=== PATIENT | female | born 1945 | race Caucasian/White ===

== ENCOUNTER 2017-02-20 17:34 | Emergency (ER) | payer MEDICARE ==
[~2017-02-20] VITALS: Ht 167.6 cm; Wt 58.0 kg
[2017-02-20 17:36] VITALS: BP 222/122; PULSE 102; RESP 18; TEMP 99; O2SAT 95
[2017-02-20] MEDS ORDERED: SIMV40TA PO (17:55)
[2017-02-20] MEDS ORDERED: METO100T9 PO (17:55)
[2017-02-20] MEDS ORDERED: ASPI81CH CHEW (17:55)
[2017-02-20] MEDS ORDERED: GEMF600T PO (17:55)
[2017-02-20] MEDS ORDERED: LOSA100T PO (17:55)
[2017-02-20 18:47] LABS: AUTOMATED NEUTROPHIL # 7.2 TH/MM3 (1.8-7.7); BASOPHIL % 0.5 % (0.0-2.0); EOSINOPHIL # 0.1 TH/MM3 (0-0.4); EOSINOPHIL % 1.3 % (0.0-4.0); HEMATOCRIT 43.6 % (35.0-46.0); LYMPH % 16.7 % (9.0-44.0); LYMPHOCYTE # 1.7 TH/MM3 (1.0-4.8); MEAN CELL VOLUME 101.9 FL (80.0-100.0); MEAN CORPUSCULAR HEMOGLOBIN 35.1 PG (27.0-34.0); MEAN CORPUSCULAR HGB CONC 34.4 % (32.0-36.0); MEAN PLATELET VOLUME 8.7 FL (7.0-11.0); MONO % 9.1 % (0.0-8.0); MONOCYTE # 0.9 TH/MM3 (0-0.9); NEUT % 72.4 % (16.0-70.0); PLATELET COUNT 209 TH/MM3 (150-450); RED BLOOD COUNT 4.28 MIL/MM3 (4.00-5.30); RED CELL DISTRIBUTION WIDTH 13.8 % (11.6-17.2); WHITE BLOOD COUNT 9.9 TH/MM3 (4.0-11.0)
--- NOTE | 2017-02-20 18:55 | PD ---
HPI Chief Complaint: Property Supervisor Problem/Complaint Time Seen by Provider: 18:03 Travel History International Travel<30 days: No Contact w/Intl Traveler<30days: No Traveled to known affect area: No History of Present Illness HPI 71-year-old female that presents to the ED for evaluation of vaginal bleeding. Per patient she's had this on and off for the past 3-4 days. Per patient is progressively getting more significant. The patient is started with spotting but now has progressed to more heavy bleeding. No clots. Per patient she has applied a padded to prevent the bleeding. She denies any injuries or trauma. No fevers chills or sweats. No pain. Check she had a pelvic exam about a year ago and was negative for any acute disease. She's never had anything like this before. She has not had a menses in about 20 years. She has never had surgeries for her ovaries or her uterus. She denies any other medical issues. She does not take any blood thinners. She denies any bowel movement or urinary issues. No weakness. No loss of weight. Has not POSTAL SERVICE WINDOW CLERK at this time. Patient was concerned mainly because today the bleeding continued she has no explanation for why. She has allergies to penicillin. She has no pain. PFSH Past Medical History Arthritis: Yes Heart Rhythm Problems: Yes (LBBB) High Cholesterol: Yes Hypertension: Yes Influenza Vaccination: No Menopausal: Yes Para: 0 Past Surgical History Appendectomy: Yes Social History Alcohol Use: Yes Tobacco Use: Yes Substance Use: No Allergies-Medications (Allergen,Severity, Reaction): Coded Allergies: Penicillins (Verified Allergy, Severe, Rash, 02/20/17) Reported Meds & Prescriptions Reported Meds & Active Scripts Active Reported Aspirin 81 Mg Chew 81 Mg CHEW DAILY Losartan (Losartan Potassium) 100 Mg Tab 100 Mg PO DAILY Metoprolol Succinate ER 24 HR (Metoprolol Succinate) 100 Mg Tab 100 Mg PO DAILY Gemfibrozil 600 Mg Tab 600 Mg PO BIDAC Take 30 minutes prior to breakfast and dinner. Simvastatin 40 Mg Tab 40 Mg PO HS Review of Systems Except as stated in HPI: all other systems reviewed are Neg Physical Exam Narrative GENERAL: SKIN: Warm and dry. HEAD: Atraumatic. Normocephalic. EYES: Pupils equal and round. No scleral icterus. No injection or drainage. ENT: No nasal bleeding or discharge. Mucous membranes pink and moist. Tongue is midline. No uvula deviation. NECK: Trachea midline. No JVD. CARDIOVASCULAR: Regular rate and rhythm. No murmurs, S3, S4. RESPIRATORY: No accessory muscle use. Clear to auscultation. Breath sounds equal bilaterally. GASTROINTESTINAL: Abdomen soft, non-tender, nondistended. Hepatic and splenic margins not palpable. Pelvic exam: The with female nurse present. Patient has no obvious masses or deformities to the vaginal wall or cervix. Cervix appears to be close. No obvious masses but there is some bleeding coming from the inside of the vagina. No quadriplegia noted. No obvious discharge otherwise. No adnexal tenderness that I can palpate. MUSCULOSKELETAL: Extremities without clubbing, cyanosis, or edema. No obvious deformities. Full range of motion of the upper and lower extremities bilaterally. 2+ pulses bilaterally. NEUROLOGICAL: Awake and alert. No obvious cranial nerve deficits. Motor grossly within normal limits. Five out of 5 muscle strength in the arms and legs. Normal speech. PSYCHIATRIC: Appropriate mood and affect; insight and judgment normal. Data Data Last Documented VS Vital Signs Date Time Temp Pulse Resp B/P (MAP) Pulse Ox O2 Delivery O2 Flow Rate FiO2 02/20/17 19:30 88 18 180/78 (112) 99 Room Air 02/20/17 17:36 99.0 Orders Orders Complete Blood Count With Diff (02/20/17 18:18) Basic Metabolic Panel (Bmp) (02/20/17 18:18) Urinalysis - C+S If Indicated (02/20/17 18:18) Coag Profile (02/20/17 18:18) Wet Prep Profile (02/20/17 18:18) Us Pelvis Comp W Transvaginal (02/20/17 ) Labs Laboratory Tests Test 02/20/17 18:28 02/20/17 20:26 White Blood Count 9.9 TH/MM3 Red Blood Count 4.28 MIL/MM3 Hemoglobin 15.0 GM/DL Hematocrit 43.6 % Mean Corpuscular Volume 101.9 FL Mean Corpuscular Hemoglobin 35.1 PG Mean Corpuscular Hemoglobin Concent 34.4 % Red Cell Distribution Width 13.8 % Platelet Count 209 TH/MM3 Mean Platelet Volume 8.7 FL Neutrophils (%) (Auto) 72.4 % Lymphocytes (%) (Auto) 16.7 % Monocytes (%) (Auto) 9.1 % Eosinophils (%) (Auto) 1.3 % Basophils (%) (Auto) 0.5 % Neutrophils # (Auto) 7.2 TH/MM3 Lymphocytes # (Auto) 1.7 TH/MM3 Monocytes # (Auto) 0.9 TH/MM3 Eosinophils # (Auto) 0.1 TH/MM3 Basophils # (Auto) 0.0 TH/MM3 CBC Comment DIFF FINAL Differential Comment Prothrombin Time 10.8 SEC Prothromb Time International Ratio 1.0 RATIO Activated Partial Thromboplast Time 25.5 SEC Clue Cells (Wet Prep) NONE SEEN Vaginal Trichomonas (Wet Prep) NONE SEEN Vaginal Yeast (Wet Prep) NONE SEEN Blood Urea Nitrogen 15 MG/DL Creatinine 0.73 MG/DL Random Glucose 112 MG/DL Calcium Level 9.5 MG/DL Sodium Level 139 MEQ/L Potassium Level 3.6 MEQ/L Chloride Level 108 MEQ/L Carbon Dioxide Level 24.4 MEQ/L Anion Gap 7 MEQ/L Estimat Glomerular Filtration Rate 79 ML/MIN MDM Medical Decision Making Medical Screen Exam Complete: Yes Emergency Medical Condition: Yes Medical Record Reviewed: Yes Interpretation(s) CBC Diagram 02/20/17 18:28 BMP Diagram 02/20/17 18:28 Calcium Level 9.5 wet prep negative Last Impressions Pelvis Ultrasound 02/20/17 0000 Signed Impressions: Service Date/Time: Wednesday, February 20, 2017 19:49 - CONCLUSION: 1. Exam Limited by bowel gas. Ovaries and endometrial stripe not seen. Questionable uterine calcifications. Trace free fluid. Robson Swenson MD Differential Diagnosis Vaginal bleeding versus postmenopausal vaginal bleeding versus cancer versus tumor versus UTI versus fibroid Narrative Course 71-year-old female that presents to the ED for evaluation of vaginal bleeding. Patient was properly examined and was found to have signs and symptoms consistent with vaginal bleeding. Unclear etiology at this time. Case discussed in my attending who recommends labs and imaging. This was ordered. This showed no sign of acute disease other than possible fibroid. Unfortunately cannot give a good diagnosis for the patient. Do recommend close follow-up with POSTAL SERVICE WINDOW CLERK. I strongly encouraged her to follow with POSTAL SERVICE WINDOW CLERK week. She understands this. No medications given at this time. Close follow with PCP. See ED for any worsening symptoms. She understands reasons to come back. This was discussed with my attending who agrees with plan. Diagnosis Primary Impression: Postmenopausal bleeding Referrals: Josh Nicole MD Patient Instructions: General Instructions Med/Other Pt SpecificInfo: No Change to Meds Disposition: 01 DISCHARGE HOME Condition: Justice Johnson Feb 20, 2017 18:55
[2017-02-20 19:00] LABS: BICARBONATE 24.4 MEQ/L (21.0-32.0); CALCIUM 9.5 MG/DL (8.5-10.1); CREATININE 0.73 MG/DL (0.50-1.00); PROTHROMBIN TIME - PATIENT 10.8 SEC (9.8-11.6)
[2017-02-20 19:30] VITALS: BP 180/78; PULSE 88; RESP 18; O2SAT 99
--- NOTE | 2017-02-20 20:27 | RADRPT ---
EXAM DATE/TIME: 02/20/2017 19:49 [facility] COMPARISON: No previous studies available for comparison. INDICATIONS : Bleeding post-menopause. MEDICAL HISTORY : Hypercholesterolemia. Hypertension. Arthritis. SURGICAL HISTORY : Appendectomy. ENCOUNTER: Initial ACUITY: 1 week PAIN SCORE: 0/10 LOCATION: Bilateral pelvis MEASUREMENTS: TRANSABDOMINAL: FINDINGS: Exam Limited due to bowel gas. Ovaries not visualized. Probable endometrial calcification that could be related to a fibroid. Endometrial stripe not visualized. CONCLUSION: 1. Exam Limited by bowel gas. Ovaries and endometrial stripe not seen. Questionable uterine calcifica tions. Trace free fluid. Robson Swenson MD on February 20, 2017 at 20:24 Board Certified Radiologist. This report was verified electronically.
[2017-02-20 21:12] LABS: BILIRUBIN, URINE NEG (NEG); BLOOD, URINE LARGE (NEG); GLUCOSE,URINE NEG (NEG); KETONE, URINE NEG (NEG); MUCUS URINE FEW /lpf (OCC); NITRITE,URINE NEG (NEG); PH, URINE 6.5 (5.0-8.5); SQUAMOUS EPITHELIAL CELL URINE <1 /hpf (0-5); URINE COLOR LIGHT-YELLOW (YELLW/STRAW); URINE LEUKOCYTE ESTERASE SMALL (NEG)
== END 2017-02-20 21:16 | disposition home or self-care (01) ==
LOC: NEPC 17:34
DX: N95.0 Postmenopausal bleeding (principal); I10 Essential (primary) hypertension; Z72.0 Tobacco use
CPT/HCPCS: 76830; 76856; 80048; 81001; 85025; 85610; 85730; 87210

== ENCOUNTER → 2017-03-18 | Day surgery (SDC) | payer MEDICARE ==
--- NOTE | 2017-03-17 14:03 | TH ---
cc: REBECCA BRUNSON MD DATE: 03/17/2017 REASON FOR ADMISSION This is a 71-year-old white female, 0. She is being admitted to [facility] for evaluation of postmenopausal bleeding. HISTORY OF PRESENT ILLNESS The patient is well-known to our practice. She came in after she had two episodes of postmenopausal bleeding, one heavy enough to bring her to the emergency room. After seeing her in the office and evaluating her, we did an endometrial sampling which was read out as benign. The patient has continued to bleed, however, and ultrasound scan examination showed a grossly enlarged endometrial layer of 20 mm which does bring the possibility of malignancy despite having a negative endometrial sampling. We discussed this possibility with the patient and scheduled her for a full dilatation and curettage and hysteroscopy. SOCIAL HISTORY She does admit to smoking and smokes every day. She drinks socially, 0-2 drinks per day. PAST MEDICAL HISTORY 1. Hypertension. 2. Hyperlipidemia. MEDICATIONS She is presently on: 1. Aspirin 81 mg. 2. Losartan 100 mg daily. 3. Metoprolol. 4. Gemfibrozil. 5. Simvastatin. FAMILY HISTORY Her mother and father both had diabetes and mother and father both had hypertension. REVIEW OF SYSTEMS Essentially noncontributory. PHYSICAL EXAMINATION GENERAL: The patient is seen well-developed, well-nourished, in no acute distress. VITAL SIGNS: Blood pressure 160/100, pulse 70, respirations 12. HEENT: Negative. CHEST: Clear to auscultation. CARDIOVASCULAR: Regular rate. ABDOMEN: Soft. Bowel sounds positive. PELVIC: The uterus is slightly enlarged. There are no adnexal masses palpable. External genitalia is within normal limits. EXTREMITIES: No cyanosis, clubbing or edema. NEUROPSYCHIATRIC: The patient is oriented x3. No gross neurocranial deficit. IMPRESSION The impression on admission is postmenopausal bleeding. PLAN The plan is for D&C and hysteroscopy. MD ARMANDO LittleG/ROSANNA /1:37 PM /1:50 PM
[~2017-03-18] MED LIST: ASPI-516 CHEW; GEMF600T PO; LACTATED RINGER'S 1000 ML INJ 1,000 ML ONE; LOSA100T PO; MEPERIDINE HCL 25 MG/ML VIAL ONE; METO1TAB43 PO; MIDAZOLAM HCL 2 MG/2 ML VIAL ONE; ONDANSETRON HCL 4 MG/2 ML VIAL IV PUSH ONE; PROPOFOL 200 MG/20 ML AMP IV ONE; SIMV40TA PO; SODIUM CHLOR 0.9% 250 ML BAG IV ONE; VANCOMYCIN HCL 1000 MG VIAL ONE
--- NOTE | 2017-03-18 10:47 | MP ---
cc: ROBBI OTOOLE MD DATE OF SURGERY 03/18/2017 PREOPERATIVE DIAGNOSIS Postmenopausal bleeding. POSTOPERATIVE DIAGNOSIS Postmenopausal bleeding. OPERATION D&C, hysteroscopy. SURGEON MD Xiang ANESTHESIA General. ESTIMATED BLOOD LOSS Minimal. FINDINGS Findings consistent with possible polypoid tissue removed from the endometrial cavity. NON DESTRUCTIVE TESTING SCIENTIST None. COMPLICATIONS None. PROCEDURE The patient was prepped and draped in dorsal lithotomy position. Weighted speculum was placed in the posterior vaginal vault. The anterior lip of the cervix was grasped with a single-tooth tenaculum. The uterine cavity was sounded to approximately 7.5 cm. It was dilated up using Ignacio dilators, then the sharp curetting instrument was entered in the endometrial cavity. Curettings were taken. These were then sent to pathology. The hysteroscope was then used to identified any abnormalities in the uterine cavity. There was none. The hysteroscope was then removed, the tenaculum and speculum removed and the patient returned to the recovery room in stable condition. Robbi Otoole MD JSG/SSB /9:01 AM /10:31 AM
== END | disposition home or self-care (01) ==
LOC: ESDC 06:41
PROVIDERS: ATTEND Obstetrics & Gynecology
DX: N95.0 Postmenopausal bleeding (principal)
CPT/HCPCS: 00952; 58558; 88305; J2175; J2250; J2405; J3010; J3370; J7050; J7120

== ENCOUNTER → 2017-04-15 | Outpatient (CLI) | payer MEDICARE ==
[~2017-04-15] MED LIST changes: -LACTATED RINGER'S 1000 ML INJ 1,000 ML ONE; -MEPERIDINE HCL 25 MG/ML VIAL ONE; -MIDAZOLAM HCL 2 MG/2 ML VIAL ONE; -ONDANSETRON HCL 4 MG/2 ML VIAL IV PUSH ONE; -PROPOFOL 200 MG/20 ML AMP IV ONE; -SODIUM CHLOR 0.9% 250 ML BAG IV ONE; +TRAM50 PO; -VANCOMYCIN HCL 1000 MG VIAL ONE
[2017-04-15 14:16] LABS: AUTOMATED NEUTROPHIL # 6.8 TH/MM3 (1.8-7.7); BASOPHIL % 0.5 % (0.0-2.0); EOSINOPHIL # 0.1 TH/MM3 (0-0.4); EOSINOPHIL % 0.9 % (0.0-4.0); HEMATOCRIT 43.6 % (35.0-46.0); HEMO FLAGS DIFF FINAL; LYMPH % 15.1 % (9.0-44.0); LYMPHOCYTE # 1.4 TH/MM3 (1.0-4.8); MEAN CELL VOLUME 102.6 FL (80.0-100.0); MEAN CORPUSCULAR HEMOGLOBIN 35.2 PG (27.0-34.0); MEAN CORPUSCULAR HGB CONC 34.3 % (32.0-36.0); MONO % 8.1 % (0.0-8.0); NEUT % 75.4 % (16.0-70.0); PLATELET COUNT 225 TH/MM3 (150-450); RED BLOOD COUNT 4.25 MIL/MM3 (4.00-5.30); RED CELL DISTRIBUTION WIDTH 13.4 % (11.6-17.2)
[2017-04-15 14:27] LABS: APTT (PATIENT) 24.7 SEC (24.3-30.1); PROTHROMBIN TIME - PATIENT 10.4 SEC (9.8-11.6)
[2017-04-15 16:04] LABS: ALT (GPT) 22 U/L (10-53); ANION GAP 6 MEQ/L (5-15); AST (GOT) 16 U/L (15-37); BICARBONATE 28.7 MEQ/L (21.0-32.0); BLOOD UREA NITROGEN 13 MG/DL (7-18); CHLORIDE 108 MEQ/L (98-107); GLOMERULAR FILTRATION RATE 80 ML/MIN (>89); GLUCOSE,FASTING 99 MG/DL (74-99); SODIUM (NA) 143 MEQ/L (136-145)
[2017-04-15 16:15] LABS: ALKALINE PHOSPHATASE 76 U/L (45-117); TOTAL BILIRUBIN ADULT 0.4 MG/DL (0.2-1.0)
== END ==
LOC: CPRE 13:46
PROVIDERS: ATTEND Obstetrics & Gynecology Gynecologic Oncology
DX: C54.1 Malignant neoplasm of endometrium (principal)
CPT/HCPCS: 36415; 80053; 85025; 85610; 85730; 86304

== ENCOUNTER 2017-04-22 08:15 | Observation (INO) | payer MEDICARE ==
[~2017-04-22] VITALS: Ht 167.6 cm; Wt 62.3 kg
[~2017-04-22 08:15] MED LIST changes: -TRAM50 PO
[2017-04-22] MEDS ORDERED: CHLORHEXIDINE GLUCONATE 2 % 1 PACK (2 CLOTHS) TOPICAL PRN (08:45)
[2017-04-22] MEDS ORDERED: METOPROLOL TARTRATE 25 MG TAB PO PRN (08:45)
[2017-04-22] MEDS ORDERED: LACTATED RINGER'S 1000 ML IV PRN (08:45)
[2017-04-22] MEDS ORDERED: POVIDONE IODINE 5% (ANTISEPSIS KIT) 4 APPLICATIONS EACH NARE PRN (08:45)
[2017-04-22] MEDS ORDERED: SODIUM CHLORID 0.9% 500 ML IV PRN (08:45)
[2017-04-22] MEDS ORDERED: METRONIDAZOLE 500 MG/100 ML ISONTONIC SOLN IV SCH (09:00)
[2017-04-22] MEDS ORDERED: LEVOFLOXACIN 500 MG PREMIX INJ 100 ML IV SCH (09:00)
[2017-04-22] MEDS ORDERED: HEPARIN SODIUM - SQ 10,000 UNITS/ML VIAL SQ SCH (09:00)
[2017-04-22] MEDS ORDERED: NEOSTIGMINE 5 MG/5 ML SYRINGE IV PUSH ONE (12:00)
[2017-04-22] MEDS ORDERED: ONDANSETRON HCL 4 MG/2 ML VIAL IV ONE (12:00)
[2017-04-22] MEDS ORDERED: LABETALOL HCL 100 MG/20 ML VIAL IV ONE (12:00)
[2017-04-22] MEDS ORDERED: ROCURONIUM INJ 50 MG/5 ML SYRINGE IV PUSH ONE (12:00)
[2017-04-22] MEDS ORDERED: DEXAMETHASONE SOD PHOS 4 MG/ML VIAL IV ONE (12:00)
[2017-04-22] MEDS ORDERED: PROPOFOL 200 MG/20 ML AMP IV ONE (12:00)
[2017-04-22] MEDS ORDERED: ePHEDrine/NS 25 MG/5 ML SYRINGE IV ONE (12:00)
[2017-04-22] MEDS ORDERED: LIDOCAINE HCL 1% PF 5 ML SYRINGE OTHER ONE (12:00)
[2017-04-22] MEDS ORDERED: STERILE WATER FOR INJECTION 20 ML VIAL IV ONE (12:00)
[2017-04-22] MEDS ORDERED: VECURONIUM BROMIDE 20 MG VIAL IV ONE (12:00)
[2017-04-22] MEDS ORDERED: GLYCOPYRROLATE 1 MG/5 ML SYRINGE IV PUSH ONE (12:00)
[2017-04-22] MEDS ORDERED: METHYLENE BLUE 10 MG/ML VIAL OTHER ONE (14:00)
[2017-04-22] MEDS ORDERED: DO NOT ADM ANY ANTICOAGULANT DRUGS PRN (16:46)
[2017-04-22] MEDS ORDERED: *morphine SULFATE 8 MG/ML PERIprocedure ONLY ONE ×2 (16:53→17:12)
[2017-04-22] MEDS: KETOROLAC TROMETHAMINE 30 MG/ML (IVP) VIAL IVP SCH ×2 (17:00→22:32)
[2017-04-22] MEDS: D5-1/2 NS + KCL 20 MEQ INJ 1,000 ML IV SCH (17:15)
[2017-04-22] MEDS ORDERED: ONDANSETRON HCL 4 MG/2 ML VIAL IVP PRN (18:00)
[2017-04-22] MEDS ORDERED: traMADol HCL 50 MG TAB PO PRN (18:00)
[2017-04-22] MEDS ORDERED: diphenhydrAMINE HCL 25 MG CAP PO PRN (18:00)
[2017-04-22] MEDS ORDERED: LORazepam 0.5 MG TAB PO PRN (18:00)
[2017-04-22] MEDS ORDERED: SODIUM CHLORIDE 0.9% FLUSH 10 ML FLUSH IV FLUSH PRN (18:00)
[2017-04-22] MEDS ORDERED: DIMETHICONE/OXYBENZONE/PADMIATE LIP BALM 4.25 GM TOPICAL ONE (18:14)
[2017-04-22] MEDS ORDERED: HYDROmorphone HCL PF 2 MG/ML VIAL IV PRN (18:15)
[2017-04-22 20:30] VITALS: BP 122/69; PULSE 81; RESP 18; TEMP 98.1; O2SAT 95
[2017-04-22] MEDS ORDERED: PRAVASTATIN SOD 80 MG TAB PO SCH (21:00)
[2017-04-22] MEDS: SODIUM CHLORIDE 0.9% FLUSH 10 ML FLUSH IV FLUSH SCH (22:31)
[2017-04-23 01:02] VITALS: BP 110/72; PULSE 81; RESP 18; TEMP 98.2; O2SAT 92
[2017-04-23 04:48] VITALS: BP 120/79; PULSE 85; RESP 18; TEMP 98.3; O2SAT 94
[2017-04-23] MEDS: KETOROLAC TROMETHAMINE 30 MG/ML (IVP) VIAL IVP SCH (04:49)
[2017-04-23] MEDS: D5-1/2 NS + KCL 20 MEQ INJ 1,000 ML IV SCH (04:50)
[2017-04-23] MEDS ORDERED: TRAM50 PO (06:59)
[2017-04-23] MEDS ORDERED: GEMFIBROZIL 600 MG TAB PO SCH (07:00)
[2017-04-23 08:17] LABS: AUTOMATED NEUTROPHIL # 10.9 TH/MM3 (1.8-7.7); BASOPHIL % 0.1 % (0.0-2.0); HEMATOCRIT 36.7 % (35.0-46.0); HEMOGLOBIN 12.2 GM/DL (11.6-15.3); LYMPH % 4.6 % (9.0-44.0); LYMPHOCYTE # 0.6 TH/MM3 (1.0-4.8); MEAN CELL VOLUME 102.2 FL (80.0-100.0); MEAN CORPUSCULAR HEMOGLOBIN 33.9 PG (27.0-34.0); MEAN CORPUSCULAR HGB CONC 33.2 % (32.0-36.0); MEAN PLATELET VOLUME 8.2 FL (7.0-11.0); MONO % 7.9 % (0.0-8.0); NEUT % 87.4 % (16.0-70.0); PLATELET COUNT 207 TH/MM3 (150-450); RED BLOOD COUNT 3.59 MIL/MM3 (4.00-5.30); RED CELL DISTRIBUTION WIDTH 13.7 % (11.6-17.2); WHITE BLOOD COUNT 12.5 TH/MM3 (4.0-11.0)
[2017-04-23 08:47] LABS: BICARBONATE 25.7 MEQ/L (21.0-32.0); CALCIUM 7.9 MG/DL (8.5-10.1); CREATININE 0.96 MG/DL (0.50-1.00)
[2017-04-23 08:51] VITALS: BP 138/72; PULSE 82; RESP 18; TEMP 98.5; TEMP 99.4; O2SAT 98
[2017-04-23] MEDS: SODIUM CHLORIDE 0.9% FLUSH 10 ML FLUSH IV FLUSH SCH (08:54)
[2017-04-23] MEDS ORDERED: LOSARTAN 50 MG TAB PO SCH (09:00)
[2017-04-23] MEDS ORDERED: NITROFURANTOIN MONOHYD MACROCR 100 MG CAP PO SCH (09:00)
[2017-04-23] MEDS ORDERED: METOPROLOL SUCCINATE 50 MG EXTENDED RELEASE TAB PO SCH (09:00)
--- NOTE | 2017-04-26 15:57 | MD ---
cc: REBECCA BRUNSON MD,STEPHANIE Bobby MD ADMISSION DATE: 04/22/2017 DISCHARGE DATE: 04/23/2017 PROCEDURE 04/22/2017 - Robotic-assisted laparoscopic hysterectomy, bilateral salpingo-oophorectomy, extensive lysis of adhesions, bilateral pelvic lymph node biopsies. DIAGNOSIS High-grade endometrial cancer. FINDINGS Sigmoid mass with intraoperative consult to Dr. Gael Rodrigues. HOSPITAL COURSE She remained hemodynamically stable, tolerating oral intake. Michael catheter has remained in place due to some oversewing of the bladder at surgery. In's and out's 1300/600. LABS Pending. PHYSICAL EXAMINATION VITAL SIGNS: Afebrile, pulse 74-85, respirations 16-18, blood pressure 110-122/60-79, O2 saturations greater than or equal to 92% while asleep, up to 97% while awake. LUNGS: Clear except for mild basilar rales. CARDIOVASCULAR: Regular rate and rhythm. ABDOMEN: Soft. Incisions clean and dry. COMMERCIAL PEST CONTROL TECHNICIAN: No bleeding. ASSESSMENT Postop day #1. Findings, preliminary pathology, steps taken, discussed. Activities and restrictions reviewed. Questions were asked and answered. She expressed good understanding. PLAN Anticipate discharge to home. She is to continue indwelling Michael catheter for one week. She is contact our office to schedule follow up in one week and the office number is made available. She was also made aware of the findings of a sigmoid mass that needs further evaluation and appointment will be set for her to see Dr. Gael Rodrigues in colorectal surgery who was consulted intraoperatively and is aware of preliminary findings and recommended follow-up colonoscopy and potentially additional intervention after she is healed up from her current surgery. She is to resume prior medications. She is to take once daily Macrobid while she has a Michael catheter in place. She has tramadol for pain and she should call our office should she have any questions or problems between now and the time of scheduled followup. Stephanie Morales MD KM/KITTY /6:52 AM /3:36 PM
--- NOTE | 2017-05-12 10:48 | MP ---
cc: MATTEO ARTHUR M.D., KELLY L. MD DATE OF SURGERY 04/22/2017 PREOPERATIVE DIAGNOSIS Endometrial cancer. POSTOPERATIVE DIAGNOSIS Endometrial cancer. POSTOPERATIVE DIAGNOSIS Endometrial cancer. PROCEDURE Robotic-assisted laparoscopic hysterectomy, bilateral salpingo-oophorectomy, bilateral retroperitoneal pelvic lymph node exploration, and excisional lymph node biopsies. SURGEON Iliana Morales. INTRAOPERATIVE CONSULT Gael Rodrigues-Colorectal Surgery DOUGH SHEETER [employer] Network Engineer. ANESTHESIA General endotracheal. ESTIMATED BLOOD LOSS 100 cc. HISTORY This is a 71-year-old female with postmenopausal bleeding which led to further evaluation with prominent endometrial stripe. Biopsy showed high-grade endometrial cancer. She was counseled regarding these findings and consideration for surgery. She is seen again in the pre-op holding area where the findings are again reviewed, questions were answered and the plan of care is discussed. She expressed good understanding and agrees to move forward. FINDINGS Uterine cavity sounds between 6 and 7 cm. The uterus grossly appears normal. The ovaries grossly appear normal. In the peritoneal cavity the liver and diaphragm edges are smooth. The omentum grossly appears normal. Large and small bowel and adjacent mesentery are without any evidence of tumor implants. In the retroperitoneum there are no prominent lymph nodes in the paraaortic or pericaval region. On exploration of the retroperitoneum there are a couple of borderline enlarged lymph nodes in the right pelvic region, one in the external iliac region, one in the obturator space ventral to the obturator nerve. On the left side there is a single lymph node, prominent along the external iliac vein. Each lymph node was perhaps no larger than 1 cm. The remainder of the lymphatic basin appeared normal. The uterus once removed showed a tumor to be approximately 2 cm in diameter with what seemed to be fairly superficial myometrial invasion, certainly seemingly far less than 50%. No extension into the cervix. A 5-6 cm mass was noted seemingly arising from the medial (right) wall of the lower sigmoid colon. The mass is of uncertain etiology. Dr. Rodrigues graciously came to the OR upon request and reviewed these findings on the surgical monitor. He recommended no intervention be undertaken at this time, but recommended outpatient follow-up evaluation, including colonoscopy. DETAILS OF PROCEDURE She was taken to the operating room, placed in dorsal lithotomy position. After general endotracheal anesthesia was administered a timeout was undertaken. She was identified by sight recognition and hospital ID [id number], and the proposed procedure was reviewed and confirmed. She was carefully positioned in padded Sarthak stirrups. Her arms were padded and secured to the sides. She was further secured to the operating table with eggcrate padding and tape in across chest over the shoulder fashion. All sites were noted to be properly aligned with no malalignments or pressure points. She was prepped and draped in sterile fashion, placed in lithotomy position. The cervix was grasped. The uterine cavity was sounded. A standard VCare manipulator was inserted and secured in the usual fashion. A Michael catheter was placed in the bladder. She has returned to low lithotomy position. A change of sterile gloves was undertaken. We completed draping in anticipation of laparoscopy. After confirming that an orogastric tube was in the stomach on suction with manual elevation of the abdominal wall and direct laparoscopic visualization, a 5 mm cannula was introduced into the left upper quadrant in an atraumatic fashion. Carbon dioxide gas was insufflated. Under laparoscopic visualization a 12 mm cannula was placed in the midline above the umbilicus, an 8 mm cannula placed in the right upper quadrant and left lateral quadrant, and the original 5 mm exchanged for an 8 mm cannula. She was placed in steep Trendelenburg position. Peritoneal washings were obtained for cytology. The anatomy was reviewed with findings as described above. The small bowel was folded back on its mesenteric root and three Ray-Shellie sponges were placed around the root of the small bowel mesentery. The robotic system was brought into the operative field and attached in the usual fashion. Monopolar scissors, fenestrated bipolar forceps and ProGrasp manipulators were placed in arms #1, 2 and 3 respectively, and I took my place at the surgeon's console. The right round ligament was isolated, cauterized and transected. The anterior and posterior leafs of the broad ligament were opened. The right ureter was identified. The right infundibulopelvic ligament was opened. The intervening peritoneum was dissected. The infundibulopelvic ligament was isolated to the level of the pelvic brim where it was cauterized and transected. The posterior peritoneum was opened along the right side of the uterus and cervix and the right vesicouterine peritoneum was dissected off the lower uterine segment and cervix. The right uterine vessels were skeletonized. The right uterine vessels were cauterized and transected as were the cardinal, paracervical and uterosacral ligaments, thereby freeing attachments along the right side of the uterus and cervix. Attention was directed toward the left side. Subtle physiologic adhesions were taken down to mobilize the colon. The left round ligament was isolated, cauterized and transected. The anterior and posterior leafs of the broad ligament were opened. The left ureter was identified. The left infundibulopelvic ligament was isolated. The intervening peritoneum was opened. The infundibulopelvic ligament was isolated to the level of the pelvic brim where it was cauterized and transected. The posterior peritoneum was opened along the left side of the uterus and cervix. The left vesicouterine peritoneum was dissected off the lower uterine segment and cervix and the left uterine vessels were skeletonized. The left uterine vessels were cauterized and transected as were the cardinal, paracervical and uterosacral ligaments, thereby removing the attachments along the left side of the uterus and cervix. Circumferential colpotomy was performed the cervix from the upper vagina. The specimen was withdrawn transvaginally which included uterus, cervix, tubes and ovaries. A pneumo-occluder balloon was placed in the vagina to maintain pneumoperitoneum. Instruments 1 and 3 were exchanged for needle drivers. As 0 Vicryl suture was introduced the vaginal cuff was closed starting at the left corner, full-thickness closure through the wall of the vagina incorporating the posterior peritoneum and edge of the uterosacral ligament and tied via instrument tie. The closure was held on countertraction as a running continuous full-thickness closure was carried across the vaginal cuff to the contralateral corner where it was similarly fixed, secured and tied via instrument tie. The needle was cut and removed. The pathology came back with findings as described above. It was a small tumor with minimal myometrial invasion; however, it was a grade 3 tumor and so the lymphatic basins were carefully inspected with findings as described above. On the right side the paravesical, pararectal an obturator spaces were opened. The lymphatics were inspected. A slightly prominent lymph node in the external iliac region and one in the obturator space were isolated. Bipolar cautery and sharp dissection were used to remove these lymph nodes and they were placed on a Ray-Shellie sponge in the right pericolic gutter for later retrieval. The remainder of lymphatic basins were left undisturbed in an effort to try to minimize morbidity. Attention was directed toward the left side where similarly the paravesical, obturator and pararectal spaces were developed. The lymphatic basins were inspected. A single slightly prominent lymph node along the external iliac artery and vein was noted. It was isolated and bipolar cautery and sharp dissection were used to remove this lymph node which was placed in the right pericolic gutter with the other lymph nodes. The lymphatic basin was inspected. There were no other abnormal-appearing nodes and the remainder of the lymphatics were left intact. Inspection and palpation revealed no detectable prominent lymph nodes in the paraaortic or pericaval region. The pelvis was thoroughly irrigated. Small bleeders were rendered hemostatic with the bipolar cautery. All sites were noted to be hemostatic. It was felt that all reasonable surgical objectives in this patient had been completed. Accordingly, the robotic instruments were removed. The robotic system was disengaged from the operative field. I reentered the bedside under sterile condition. We used a 12 cm EndoCatch bag to capture the lymph nodes which were brought out through the 12 mm cannula. Each of the three Ray-Shellie sponges that had been placed in the peritoneal cavity were removed individually. They were inspected and noted to be removed in their entirety. Visual inspection confirmed there were no remaining foreign objects in the peritoneal cavity. The sites were hemostatic. Preliminary counts were correct. Attention was directed toward closing. The 12 mm fascial defect was closed with interrupted 0 Vicryl sutures using a needle pass fascia closure apparatus and tied securely which rendered the fascia completely airtight and hemostatic. The remaining cannulas were withdrawn. Carbon dioxide gas was removed from the peritoneal cavity. 3-0 Vicryl subcutaneous, 3-0 Vicryl subcuticular and Steri-Strips were used to close these incisions. She was returned to the dorsal lithotomy position. Pelvic exam confirmed the vaginal cuff was well-supported and hemostatic. There were no vaginal lacerations, no remaining foreign objects in the vagina and final counts were correct. She was returned to dorsal supine position and was pending reversal of anesthesia when I left the operating room to precede her to the post-anesthesia care unit. MD SINGH Lawrence/ROSANNA /7:15 AM /10:04 AM ELENA
== END 2017-04-23 12:08 | disposition home or self-care (01) ==
LOC: HSDC 08:15 → HCIN 16:41
PROVIDERS: ADMIT Obstetrics & Gynecology Gynecologic Oncology; ATTEND Obstetrics & Gynecology Gynecologic Oncology
DX: C54.1 Malignant neoplasm of endometrium (principal); N95.0 Postmenopausal bleeding; I45.10 Unspecified right bundle-branch block; N72 Inflammatory disease of cervix uteri; Z79.82 Long term (current) use of aspirin
CPT/HCPCS: 00840; 38500; 58552; 80048; 85025; 86850; 86900; 86901; 88112; 88307; 88309; 88331; 96361; 96374; 96375; G0378; J1100; J1644; J1885; J1956; J2270; J2405; J2710; J3480; J7120; S2900; 88305